=== PATIENT | female | born 2000 | race Caucasian/White ===

== ENCOUNTER → 2022-12-01 | Outpatient (CLI) | payer SELFPAY ==
[2022-12-01 15:37] LABS: Absolute Lymphocyte Count 2.44 X10^3/uL (0.83-4.51); Basophil# 0.02 X10^3/uL; Basophil% 0.2 % (0-1); Eosinophil# 0.12 X10^3/uL; Eosinophils% 1.3 % (0-5); Hematocrit 34.4 % (37-47); Hemoglobin 11.4 g/dL (12.0-15.0); Lymphocyte # 2.44 X10^3/ul (0.83-4.51); Lymphocyte % 26.8 % (19-41); Mean Corp Hgb Conc 33.1 g/dL (32-36); Mean Corpuscular Hgb 29.1 pg (27.0-32.0); Mean Corpuscular Volume 87.8 fL (81-99); Mean Platelet Vol. 10.4 fl (6.2-12.0); Monocyte# 0.53 X10^3/uL; Monocyte% 5.8 % (0-10); NRBC Flagged by Analyzer 0 % (0-5); Neutrophil # 5.96 X10^3/uL (2.7-7.7); Neutrophil % 65.7 % (47-70); Platelet Count 223 K/mm3 (150-450); RBC Distribution Width CV 13.8 % (11.6-14.6); Red Blood Count 3.92 M/mm3 (4.2-5.4); White Blood Count 9.1 K/mm3 (4.4-11.0)
[2022-12-01 16:27] LABS: HIV - WCH Non-Reactive (Nonreactive); Hepatitis B Surface Antigen Non-Reactive (Nonreactive); Hepatitis C Antibody Non-Reactive (Nonreactive); Rubella IgG Non-Reactive (Nonreactive); Syphilis Antibodies Non-reactive
[2022-12-03 17:58] LABS: V-Zoster IgG (Immunity) 2164 index (Immune >165)
== END | disposition home or self-care (01) ==
PROVIDERS: Visit Provider Obstetrics & Gynecology
DX: Z34.82 Encounter for supervision of other normal pregnancy, second trimester (principal)
CPT/HCPCS: 36415; 85025; 86703; 86762; 86780; 86787; 86803; 87086; 87088; 87340

== ENCOUNTER → 2023-01-15 | Outpatient (CLI) | payer OTHER, SELFPAY | END | disposition home or self-care (01) | PROVIDERS: Visit Provider Obstetrics & Gynecology | DX: R30.0 Dysuria (principal) | CPT/HCPCS: 87086 ==

== ENCOUNTER → 2023-02-05 | Outpatient (CLI) | payer OTHER, SELFPAY ==
[2023-02-05 11:13] LABS: Hematocrit 34.3 % (37-47); Hemoglobin 11.1 g/dL (12.0-15.0); Mean Corp Hgb Conc 32.4 g/dL (32-36); Mean Corpuscular Hgb 28.6 pg (27.0-32.0); Mean Corpuscular Volume 88.4 fL (81-99); Mean Platelet Vol. 9.8 fl (6.2-12.0); Platelet Count 233 K/mm3 (150-450); RBC Distribution Width CV 13.3 % (11.6-14.6); RBC Distribution Width SD 43.3 fl (35.1-43.9); Red Blood Count 3.88 M/mm3 (4.2-5.4)
[2023-02-05 11:21] LABS: Glucose Challenge Gest 1H 50g 122 mg/dL (70-140)
[2023-02-05 11:42] LABS: Syphilis Antibodies Non-reactive
== END | disposition home or self-care (01) ==
LOC: WOBLAB 10:09
PROVIDERS: Visit Provider Obstetrics & Gynecology
DX: Z34.83 Encounter for supervision of other normal pregnancy, third trimester (principal)
CPT/HCPCS: 36415; 82950; 85027; 86780; 86850

== ENCOUNTER → 2023-03-17 | Outpatient (CLI) | payer OTHER, SELFPAY ==
[2023-03-17 14:46] LABS: Hematocrit 33.5 % (37-47); Hemoglobin 10.7 g/dL (12.0-15.0); Mean Corp Hgb Conc 31.9 g/dL (32-36); Mean Corpuscular Hgb 27.4 pg (27.0-32.0); Mean Corpuscular Volume 85.9 fL (81-99); Mean Platelet Vol. 10.1 fl (6.2-12.0); Platelet Count 211 K/mm3 (150-450); RBC Distribution Width CV 13.7 % (11.6-14.6); RBC Distribution Width SD 42.5 fl (35.1-43.9); White Blood Count 9.3 K/mm3 (4.4-11.0)
== END | disposition home or self-care (01) ==
LOC: WOBLAB 13:30
PROVIDERS: Visit Provider Obstetrics & Gynecology
DX: Z34.83 Encounter for supervision of other normal pregnancy, third trimester (principal)
CPT/HCPCS: 36415; 85027

== ENCOUNTER 2023-04-18 10:32 | Inpatient (IN) | payer SELFPAY, OTHER ==
[2023-04-18] VITALS (19 sets, daily range): BP systolic 103–137; BP diastolic 57–92; PULSE 74–112; TEMP 36.6–37.2; O2SAT 80–99; BMI 24.3
[2023-04-18] MEDS: Lactated Ringers 1,000 ML 50 ML IV (10:55)
[2023-04-18 11:51] LABS: Absolute Lymphocyte Count 1.93 X10^3/uL (0.83-4.51); Absolute Neutrophil Count 9.6 X10^3/uL (2.0-7.7); Basophil# 0.03 X10^3/uL; Basophil% 0.2 % (0-1); Eosinophil# 0.06 X10^3/uL; Eosinophils% 0.5 % (0-5); Hematocrit 37.8 % (37-47); Hemoglobin 12.7 g/dL (12.0-15.0); Lymphocyte # 1.93 X10^3/ul (0.83-4.51); Lymphocyte % 15.4 % (19-41); Mean Corp Hgb Conc 33.6 g/dL (32-36); Mean Corpuscular Hgb 27.9 pg (27.0-32.0); Mean Corpuscular Volume 83.1 fL (81-99); Monocyte# 0.92 X10^3/uL; Monocyte% 7.3 % (0-10); NRBC Flagged by Analyzer 0 % (0-5); Neutrophil # 9.56 X10^3/uL (2.7-7.7); Neutrophil % 76.1 % (47-70); Platelet Count 188 K/mm3 (150-450); RBC Distribution Width CV 16.3 % (11.6-14.6); Red Blood Count 4.55 M/mm3 (4.2-5.4); White Blood Count 12.6 K/mm3 (4.4-11.0)
[2023-04-18] MEDS: 0.9% Saline Lock 10 ML Syringe IV ×3 (12:37→23:50)
[2023-04-18 12:49] LABS: Syphilis Antibodies Non-reactive
[2023-04-18 14:46] LABS: Amphetamine Urine VISTA NEGATIVE (<1000 ng/mL); Barbiturate Urine VISTA NEGATIVE (< 200 ng/mL); Benzodiazepine Urine VISTA NEGATIVE (< 200 ng/mL); Cocaine Urine VISTA NEGATIVE (< 300 ng/mL); Ecstacy Urine VISTA NEGATIVE (< 500 ng/mL); Methadone Urine VISTA NEGATIVE (< 300 ng/mL); PCP Urine VISTA NEGATIVE (< 25 ng/mL); THC Urine VISTA NEGATIVE (< 50 ng/mL); Vista UDS pH Range 6
--- NOTE | 2023-04-18 17:10 | PCM.HP.BLA ---
History and Physical Date of Admission: 04/18/23 Chief complaint: Contractions History present illness: 23-year-old at 40 weeks and 3 days with BRYSON 04/15/2023 arrives with contractions. Denies headache, vision change, chest pain, shortness of breath, nausea vomit, right upper quadrant pain. is complicated by Rh-, patient declines GBS culture and prophylactic antibiotics, history of section Obstetric history: G1: 40-week primary section for failure to progress 8 pounds 11 ounces G2: Current Past medical history: None Medications: vitamin Allergies: No known drug allergies Past surgical history: section Social history: Denies smoking, alcohol use, drug use Family history: Denies history DVT or PE Review of systems: Besides above pertinent positives a full review of systems was performed and found to be negative Physical exam: Blood pressure 123/75 pulse 74 General: Normal-appearing no acute distress HEENT: Normocephalic/atraumatic no cervical of adenopathy Cardiac/respiratory: No use accessory muscles, nonlabored breathing Abdomen: Soft, nontender, gravid Pelvic exam: Cervical exam 3/80/-1. AROM thin meconium Extremities: No peripheral edema normal peripheral pulses Psych: Normal affect and remainder nonpressured speech Labs: White blood cell count 12.6 hemoglobin 12.7 hematocrit 37.8% platelets 188. RPR nonreactive. Blood type A- antibody negative. Urine drug screen negative Assessment and plan: Called operations liaison by nursing that patient arrived with contractions given order for cervical exam nursing reports 1.5 cm given instructions to recheck in 2 hours. Nursing called back with 2-hour recheck unchanged and patient feeling more comfortable with spaced out contractions but patient remote from home and hospital given instructions to nursing to reevaluate cervix in 2 hours, cervix again unchanged but patient feels uncomfortable going home although contractions are improving. Given instructions to nursing for repeat cervical exam in 2 hours. Called by nursing now with cervical change 3 cm, discussed with nursing lack of GBS and patient's decline antibiotic prophylaxis for GBS after thorough office risk-benefit alternatives nursing states understanding. Given orders to nursing for admission, educated nursing on patient's birthing plan after many discussions in office about birthing plan desires [place] and was educated in the office about the risk benefits alternatives, also educated nursing on patient's desire for his few of medical interventions as possible including her refusal for Pitocin for induction or augmentation nursing states understanding, reviewed, [place] protocol reviewed with nursing and discussed [place] plan. Called back later with patient's desire for AROM. Patient seen and examined. 23-year-old at 40 weeks and 3 days in labor attempting [place], reeducated patient thoroughly on the risk benefits alternatives [place] thoroughly discussed uterine rupture and risks for baby along with the risk benefits alternatives of epidural and what risks can occur if patient does not have an epidural at time of emergencies such as uterine rupture. Patient states understanding and wishes to proceed with [place], all questions answered and consent signed. Reeducated patient on GBS culture and antibiotics for GBS prophylaxis and their risks of sepsis and for , patient states understanding and declines culture along with antibiotics states she understands her risk and would like to continue laboring and refuses to have culture or antibiotics. Desires AROM educated patient on AROM wrist benefits alternatives including risk for rupture with GBS unknown, patient states understanding wish to proceed. AROM thin meconium, educated patient on meconium and its risk for aspiration discussed delivery plan with meconium and to notify procurement accountant. Patient states understanding. Patient continues to decline Pitocin for augmentation discussed risks for prolonged rupture of membranes and its risks, patient states understanding and at this time declines Pitocin. Entire evaluation was done with partner in room who had all questions answered. We will continue to monitor now status post AROM and will reeducate on Pitocin if needed. Again, thoroughly reviewed [facility] [place] guidelines with nursing
[2023-04-18] MEDS: Oxytocin 10 UNITS/ML Vial IM (23:48)
[2023-04-18] MEDS: Lidocaine 1% (20 ml mdv) 20 ML Vial INFILT (23:50)
[2023-04-18] MEDS: Oxytocin 15 Units/NS 250ml 15 UNITS/250 ML IV.SOLN 83 UNITS IV (23:51)
[2023-04-19] VITALS (16 sets, daily range): BP systolic 85–126; BP diastolic 46–69; PULSE 70–90; RESP 16–20; TEMP 36.6–36.9; O2SAT 96–98
--- NOTE | 2023-04-19 00:13 | EX.PCM.OBRPT ---
Vaginal Delivery Findings Description of Procedure: Normal spontaneous vaginal delivery of a viable female infant, vertex RADHA. Head and shoulders delivered with ease. Cord clamped and cut. Baby handed off to patient. Placenta delivered via cord traction and fundal massage intact, inspection of the placenta noted marginal cord insertion, educated patient on the findings. IM Pitocin and IV Pitocin use per protocol. Second-degree midline perineal laceration and bilateral labial lacerations noted and repaired in typical fashion, 1% lidocaine used. EBL 250 cc Apgars 8/9
[2023-04-19] MEDS: Ibuprofen 600 MG Tablet PO ×2 (00:37→18:38)
[2023-04-19] MEDS: 0.9% Saline Lock 10 ML Syringe IV (02:54)
--- NOTE | 2023-04-19 07:10 | NURSING ---
bedside report given to [facility] Fragoso RN who is assuming care of pt at this time
--- NOTE | 2023-04-19 08:41 | PCM.PN.OB ---
Subjective Subjective No overnight complaints Objective Data Objective Data Vital Signs: Vital Signs Temp Pulse Resp BP Pulse Ox O2 Del Method 97.8 F 70 16 107/53 L 96 Room Air 04/19/23 07:47 04/19/23 07:47 04/19/23 07:47 04/19/23 07:47 04/19/23 06:22 04/19/23 06:22 Oxygen Delivery Method Room Air Weight: 165 lb Body Mass Index (BMI) 24.3 Intake & Output: Intake and Output for Last 24 Hours 04/17/23 04/18/23 04/19/23 23:59 23:59 23:59 Intake Total 1225 / 1225 250 / 250 Output Total 600 / 600 1000 / 1000 Balance 625 / 625 -750 / -750 Lab / Micro Data Result Diagrams: 04/18/23 10:55 Labs: Laboratory Results - last 24 hr 04/18/23 10:55: WBC 12.6 H, RBC 4.55, Hgb 12.7, Hct 37.8, MCV 83.1, MCH 27.9, MCHC 33.6, RDW Std Deviation 48.0 H, RDW Coeff of Ivette 16.3 H, Plt Count 188, MPV 10.0, Immature Gran % (Auto) 0.500, Neut % (Auto) 76.1 H, Lymph % (Auto) 15.4 L, [place] % (Auto) 7.3, Eos % (Auto) 0.5, Baso % (Auto) 0.2, Absolute Neuts (auto) 9.6 H, Absolute Lymphs (auto) 1.93, Nucleated RBC % 0 04/18/23 10:55: Blood Type A NEGATIVE, Antibody Screen TNP 04/18/23 10:55: Syphilis Total Ab Non-reactive 04/18/23 10:55: Antibody Screen NEGATIVE 04/18/23 14:20: Urine Opiates Screen NEGATIVE, Urine Methadone Screen NEGATIVE, Ur Barbiturates Screen NEGATIVE, Ur Phencyclidine Scrn NEGATIVE, Ur Amphetamines Screen NEGATIVE, MDMA (Ecstasy) Screen NEGATIVE, U Benzodiazepines Scrn NEGATIVE, Urine Cocaine Screen NEGATIVE, U Cannabinoids Screen NEGATIVE, Ur Drug Screen Comment 04/19/23 02:15: Screen NEGATIVE, Baby's Blood Type A POSITIVE, Baby's LUIS NEGATIVE Physical Exam Const alert, oriented x3, no apparent distress, average body habitus, healthy appearing and well nourished HEENT normocephalic and moist oral mucous membranes Eyes PERRL Neck full ROM Resp normal respiratory effort, no retractions and no use of accessory muscles GI GI Narrative: Soft, nontender, uterus firm and below umbilicus Extremity normal to inspection and full ROM Neuro moves all extremities and no focal motor deficits Psych mental status grossly normal, affect normal, speech normal and activity/motor behavior normal Assessment & Plan (1) Vaginal delivery: PLAN: day 1 status post . Breast-feeding. Pain well controlled.
[2023-04-19] MEDS: Benzocaine/Lanolin/Aloe Vera 1 SPRAY EACH TOPICAL (18:39)
[2023-04-20 02:25] VITALS: BP 99/54; PULSE 74; RESP 16; TEMP 36.8; O2SAT 97
--- NOTE | 2023-04-20 03:21 | DS.PCM_ITS ---
Discharge Summary Date of Admission: 04/18/23 Date of Discharge: 04/20/23 Summary: Patient arrived on 04/18/2023 in labor. Subsequently delivered on 04/18/2023 vaginally via . Patient declined GBS swab and antibiotic prophylaxis for GBS. Routine recovery and discharged home on 04/20/2023. Meaningful Use Info Meaningful Use Diagnoses (Choose all that apply): None applicable Discharge Plan Admission Admit Date/Time: 04/18/23 10:32 Primary Reason for Your Visit: Labor Attending Provider: Juan Parkinson Instructions Additional Instructions / Restrictions: Regular diet. Okay to shower. Weightbearing as tolerated. No intercourse for 6 to 8 weeks. Call if fevers, chills, chest pain, shortness of breath. Follow- up 4 to 6 weeks Discharge Orders/Prescriptions Prescriptions: No Action DHA 200 mg Capsule 1 mg PO Disposition Disposition (needs filled in before D/C Order can be placed): Home, Self Care
--- NOTE | 2023-04-20 03:23 | PCM.PN.OB ---
Subjective Subjective No overnight complaints Objective Data Objective Data Vital Signs: Vital Signs Temp Pulse Resp BP Pulse Ox O2 Del Method 98.3 F 74 16 99/54 L 97 Room Air 04/20/23 02:25 04/20/23 02:25 04/20/23 02:25 04/20/23 02:25 04/20/23 02:04/20/23 02:25 Oxygen Delivery Method Room Air Weight: 165 lb Body Mass Index (BMI) 24.3 Intake & Output: Intake and Output for Last 24 Hours 04/18/23 04/19/23 04/20/23 23:59 23:59 23:59 Intake Total 1225 / 1225 250 / 250 Output Total 600 / 600 1000 / 1000 Balance 625 / 625 -750 / -750 Lab / Micro Data Result Diagrams: 04/18/23 10:55 Labs: Laboratory Results - last 24 hr 04/19/23 02:15: Screen NEGATIVE, Baby's Blood Type A POSITIVE, Baby's LUIS NEGATIVE Physical Exam Const alert, oriented x3, no apparent distress, average body habitus, healthy appearing and well nourished HEENT normocephalic and moist oral mucous membranes Eyes PERRL Neck full ROM Resp normal respiratory effort, no retractions and no use of accessory muscles GI GI Narrative: Soft, nontender, uterus firm and below umbilicus Extremity normal to inspection and full ROM Neuro moves all extremities and no focal motor deficits Psych mental status grossly normal, affect normal, speech normal and activity/motor behavior normal Assessment & Plan (1) Vaginal delivery: PLAN: day 2. Breast-feeding. Pain well controlled. Okay to discharge home today if okay with drafter automotive design layout
[2023-04-20 08:04] VITALS: BP 93/50; PULSE 68; RESP 16; TEMP 36.8; O2SAT 97
== END 2023-04-20 11:28 | disposition home or self-care (01) | DRG 806 ==
LOC: WPOUT 10:33 → WP 10:33
PROVIDERS: Admitting Provider Obstetrics & Gynecology; Referring Provider Obstetrics & Gynecology; Visit Provider Obstetrics & Gynecology
DX: O48.0 Post-term pregnancy (principal); Z37.0 Single live birth; O36.0930 Maternal care for other rhesus isoimmunization, third trimester, not applicable or unspecified; B95.1 Streptococcus, group B, as the cause of diseases classified elsewhere; O70.1 Second degree perineal laceration during delivery; Z3A.40 40 weeks gestation of pregnancy; O77.0 Labor and delivery complicated by meconium in amniotic fluid; O99.824 Streptococcus B carrier state complicating childbirth
CPT/HCPCS: 59025; 59050; 80307; 85025; 85461; 86780; 86850; 86900; 86901; 99221; J7120; A4216; G0378; J2790